=== PATIENT | female | born 1990 ===

== ENCOUNTER 2017-10-04 11:28 | Outpatient (CLI) | payer OTHER | END 2017-10-04 17:00 | disposition home or self-care (01) | LOC: SONOGRAMA 11:28 | DX: D25.0 Submucous leiomyoma of uterus (principal) ==

== ENCOUNTER 2017-12-02 05:43 | Inpatient (IN) | payer OTHER ==
[~2017-12-02] VITALS: Ht 149.9 cm; Wt 61.2 kg
[2017-12-03] MEDS ORDERED: NAPR500T14 PO (09:50)
[2017-12-03] MEDS ORDERED: ULTRACET PO (09:51)
[2017-12-03] MEDS ORDERED: CIPRO500 MG PO (09:51)
== END 2017-12-03 10:42 | disposition home or self-care (01) | DRG 749 ==
LOC: CIR.AMB 05:43 → O/R 12:46 → OB/GYN 15:04
PROVIDERS: Obstetrics & Gynecology
PROC: 0UJD8ZZ Inspection of Uterus and Cervix, Via Natural or Artificial Opening Endoscopic (ICD-10-PCS; 2017-12-02)
PROC: 0W3R7ZZ Control Bleeding in Genitourinary Tract, Via Natural or Artificial Opening (ICD-10-PCS; principal; 2017-12-02 10:30)
DX: N85.6 Intrauterine synechiae (principal); N99.61 Intraoperative hemorrhage and hematoma of a genitourinary system organ or structure complicating a genitourinary system procedure; D25.1 Intramural leiomyoma of uterus